=== PATIENT | female | born 1935 | race Hispanic/Latino ===

== ENCOUNTER 2018-08-19 10:49 | Outpatient (CLI) | payer MEDICARE ==
[2018-08-19 14:15] LABS: Albumin 4.3 g/dL (3.9-5); Calcium 9.3 mg/dL (8.4-10.2); Chol/HDL Ratio 2.76 %
== END 2018-08-19 10:50 | disposition home or self-care (01) ==
LOC: LAB 10:49
PROVIDERS: ATTEND Internal Medicine
DX: I10 Essential (primary) hypertension (principal); E11.9 Type 2 diabetes mellitus without complications; E78.5 Hyperlipidemia, unspecified; K92.1 Melena
CPT/HCPCS: 36415; 80053; 80061; 83036; 84436; 84443